=== PATIENT | male | born 1930 | race Caucasian/White ===

== ENCOUNTER 2018-08-31 08:25 | Inpatient (IN) ==
--- NOTE | 2018-08-31 08:50 | Emergency Department Note ---
Disposition Clinical Impression: Atrial fibrillation with rapid ventricular response Pneumonia Qualifiers: Pneumonia type: due to unspecified organism Laterality: bilateral Lung location: lower lobe of lung Qualified Code(s): J18.1 - Lobar pneumonia, unspecified organism Dyspnea Qualifiers: Dyspnea type: shortness of breath Qualified Code(s): R06.02 - Shortness of breath Disposition: Admitted As Inpatient Condition: Fair Referrals: Tom García DO [Primary Care Provider] - Forms: ED Satisfaction Letter Time of Disposition: 09:24 SOB HPI - General Chief Complaint: ED Chest Pain Stated Complaint: cough, congestion, and chest heaviness Time Seen by Provider: 08/31/18 08:27 Source: patient, family Mode of arrival: private vehicle Limitations: no limitations Nursing Notes Reviewed: Yes Vital Signs Reviewed: Yes - History of Present Illness Patient presents saying that he has had some shortness of breath and cough over the course of about 2-3 weeks. He states the cough is productive of yellow phlegm and tenderness be worse in the mornings. He gets a little bit better once he is been up and around for the day. He has had persistent chest tightness with this which he states is due to his breathing. He denies to me that is actually a heaviness oppressive type discomfort. He is not burning or sharp. It does not radiate to his jaw, back or arms. He states his case management social worker when his breathing gets tight her. He denies any fevers or chills. He has been having some occasional night sweats. He denies any nausea or vomiting or abdominal pain. He denies any ill exposures. He denies any change of medicines. He denies a new lower extremity swelling, immobilization or injury. He states he always has a little bit of edema. He has not had history of ongoing respiratory problems. He reports he has pulmonary function testing here ago that were "all alright". He did call to his family doctor today and was told there were "no". He has ambulated in with a cane with moderate dyspnea. Pt Subjective Complaint: shortness of breath, cough, chest pain (Tightness) Onset (ago): week(s) (3) Context: recent illness Severity: moderate, severe Consistency/Duration: gradually worsening Improves with: rest Worsens with: exertion, coughing Known history of: diabetes Associated symptoms: Reports: chest pain, cough, sputum production. Denies: pain with inspiration, fever, wheezing, orthopnea, lower extremity pain, polyuria, polydipsia, parasthesias, palpitations, hemoptysis, diaphoresis, nausea/vomiting, syncope, abdominal pain, rash, sense of impending doom Treatment prior to arrival: none Cough present: Yes Cough Description: Voluntary, Productive Cough Frequency: Intermittent Sputum production: Yes Sputum Amount: Moderate Sputum Color: Yellow - Related Data Home oxygen amount: none Home Medications Medication Instructions Recorded Confirmed Aspirin 325 mg PO DAILY 01/24/15 08/31/18 Fluticasone Propionate Nasal 2 spray NS DAILY 01/24/15 08/31/18 [Flonase] GlipiZIDE [Glucotrol] 5 mg PO DAILY 01/24/15 08/31/18 Lisinopril [Zestril] 10 mg PO DAILY 01/24/15 08/31/18 Mesalamine [Pentasa] 1,500 mg PO BID 01/24/15 08/31/18 Amlodipine Besylate 2.5 mg PO DAILY 10/24/15 08/31/18 Brimonidine 0.2% [Alphagan] 1 drop BOTH EYES BID 02/19/16 08/31/18 Cholecalciferol (Vitamin D3) 2,000 unit PO DAILY 02/19/16 08/31/18 [Vitamin D] Clobetasol Propionate 0.05% 1 appl TP DAILY 02/19/16 08/31/18 [Temovate] Cyanocobalamin (B-12) [Vitamin B12] 1,000 mcg SQ QMONTH 02/19/16 08/31/18 Famotidine [Pepcid] 40 mg PO DAILY 02/19/16 08/31/18 Gabapentin [Neurontin] 600 mg PO BID 02/19/16 08/31/18 Insulin DETEMIR [Levemir] 20 unit SQ BID 02/19/16 08/31/18 Latanoprost [Xalatan] 1 drop OP DAILY 02/19/16 08/31/18 Vit A/Vit C/Vit E/Zinc/Copper 1 each PO BID 02/19/16 08/31/18 [Icaps Areds Formula Dr Tablet] Lactobac #2-S. Therm-Bifido #1 1 each PO DAILY 01/26/17 08/31/18 [Vsl#3 Capsule] Levomefolate/B6/B12/Algal Oil 1 each PO BID 04/20/17 08/31/18 [Metanx Capsule] metFORMIN [Glucophage] 1,000 mg PO BIDWM 04/20/17 08/31/18 Thiamine Mononitrate [Vitamin B-1] 100 mg PO DAILY 06/15/17 08/31/18 Pravastatin Sodium [Pravachol] 40 mg PO DAILY 11/03/17 08/31/18 Metoprolol [Lopressor] 25 mg PO DAILY 01/02/18 08/31/18 Allergies Allergy/AdvReac Type Severity Reaction Status Date / Time No Known Allergies Allergy Verified 08/17/18 13:34 All systems ED: reviewed and negative except as stated. Past Medical History - Past Medical History Attestation: Yes The following information was validated with the patient. Source: patient, old records reviewed, obtained from family, nursing notes reviewed Medical history: Reports: cancer, diabetes, hypertension Surgical history: Reports: appendectomy, cholecystectomy, orthopedic, other (Cervical fixation) Psychiatric history: Reports: no psych history - Social History Smoking Status: Never smoker Smokeless Tobacco Status: No Alcohol use: Reports: none Drug use: Reports: none Physical Exam - General Limitations: no limitations General appearance: alert, in no apparent distress - Head Head exam: atraumatic, normocephalic, normal inspection - Eye Eye exam: Present: normal appearance, PERRL, EOMI - ENT ENT exam: normal exam, normal oropharynx, mucous membranes moist - Neck Neck exam: Present: normal inspection, full ROM, trachea midline. Absent: tenderness, meningismus - Chest Chest inspection: Present: normal inspection, symmetric chest wall rise - Respiratory Respiratory exam: Present: respiratory distress, prolonged expiratory phase. Absent: wheezes, stridor, accessory muscle use - Cardiovascular Cardiovascular exam: Present: tachycardia, irregular rhythm, normal heart sounds. Absent: JVD - Abdominal Exam Abdominal exam: Present: soft, Non-Tender, normal bowel sounds. Absent: tenderness, distention, guarding, rebound, rigidity - Extremities Exam Extremities exam: Present: normal inspection, full ROM, normal capillary refill, pedal edema (1+). Absent: tenderness, calf tenderness - Expanded Lower Extremity Exam Neurovascular/Tendon exam: Present: normal capillary refill. Absent: motor deficit, sensory deficit, tendon deficit Gait: observed and normal - Back Exam Back exam: Present: normal inspection, full ROM. Absent: tenderness, CVA tenderness (R), CVA tenderness (L) - Neurological Exam Neurological exam: Present: alert, oriented X3, normal gait (With a cane) - Psychiatric Psychiatric exam: Present: normal affect, normal mood - Skin Skin exam: Present: warm, dry, intact, normal color. Absent: diaphoresis, pallor Course Course Narrative: 09: Preliminary results been discussed with the patient. He is staying with the oxygen saturations on room air of 89-92% but does not feel dyspneic. He st ates he gets significant dyspnea on exertion. With x-ray demonstrating patchy infiltrates in the bases, he is written for a DuoNeb aerosol and Solu-Medrol and Rocephin, azithromycin and a DuoNeb aerosol. He understands we are waiting on the return of his chemistries. I have recommended inpatient observation and treatment and his ultimate destination will depend on the return of the rest of his testing. 0930: With return of all testing, care is discussed with Dr. Brennan. Patient is improving with treatment and has a heart rate of about 90. His blood pressure is 147/83 and is breathing easily saturation in the low 90s. Patient does have some elevation of his BNP but has tolerated fluids and aerosols while. Dr. Brennan will follow up closely to see if his fluids need to be decreased at any point. I do not currently see that he is having a flare of pulmonary edema/CHF. Verbal orders have been obtained for his observation. Vital Signs Temperature 96.1 F L 08/31/18 08:27 Pulse Rate 107 08/31/18 08:27 Respiratory Rate 24 08/31/18 08:27 Blood Pressure 137/111 08/31/18 08:27 O2 Sat by Pulse Oximetry 95 08/31/18 08:27 Temperature 96.1 F L 08/31/18 08:27 Pulse Rate 95 08/31/18 09:16 Respiratory Rate 22 08/31/18 09:16 Blood Pressure 123/72 08/31/18 09:16 O2 Sat by Pulse Oximetry 92 08/31/18 09:16 Oxygen Delivery Oxygen Delivery Room Air Shortness of Breath/Dyspnea - Differential Diagnosis Likely: congestive heart failure, pneumonia, asthma with exacerbation, arrhythmia - Medical Records Medical records reviewed: Yes I reviewed the patient's medical records. - Lab Data Lab results reviewed: Yes I reviewed the patient's lab results. Result diagrams: 08/31/18 08:49 08/31/18 08:49 Lab Results 08/31/18 08/31/18 08/31/18 Range/Units 08:49 08:49 08:49 WBC 5.1 (4.3-11.1) K/mcL RBC 4.33 (4.19-5.50) M/mcL Hgb 13.0 (12.9-16.9) g/dL Hct 37.6 (37.5-50.1) % MCV 86.8 (83.0-100.0) fL MCH 30.0 (28.0-33.3) pg MCHC 34.6 (31.6-35.5) g/dL RDW 15.1 H (11.5-14.5) % Plt Count 205 (140-400) K/mcL MPV 10.3 (9.4-12.4) fL Immature Gran % 0.4 (0-4) % Seg Neutrophils % 79.3 % Lymphocytes % 4.5 % Monocytes % 12.2 % Eosinophils % 3.2 % Basophils % 0.4 % Neutrophils # 4.0 (1.6-8.9) K/mcL Lymphocytes # 0.2 L (0.6-4.6) K/mcL Monocytes # 0.6 (0.0-1.3) K/mcL Eosinophils # 0.2 (0.0-0.6) K/mcL Basophils # 0.0 (0.0-0.2) K/mcL PT 13.5 H (9.4-12.1) Seconds INR 1.2 Sodium 134 L (136-145) mEq/L Potassium 3.9 (3.5-5.1) mEq/L Chloride 102 (98-107) mEq/L Carbon Dioxide 22 L (23-29) mEq/L BUN 13 (8-23) mg/dL Creatinine 0.87 (0.70-1.30) mg/dL Est GFR ( Amer) > 60 (> 60) Est GFR (Non-Af Amer) > 60 (> 60) BUN/Creatinine Ratio 15 (6-26) Glucose 146 H (70-105) mg/dL Calculated Osmolality 281 (280-300) Lactic Acid (0.5-2.2) mmol/L Calcium 8.7 (8.6-10.3) mg/dL Troponin I < 0.03 (< 0.04) ng/mL B-Natriuretic Peptide (Less than 100) pg/mL 08/31/18 08/31/18 Range/Units 08:49 08:49 WBC (4.3-11.1) K/mcL RBC (4.19-5.50) M/mcL Hgb (12.9-16.9) g/dL Hct (37.5-50.1) % MCV (83.0-100.0) fL MCH (28.0-33.3) pg MCHC (31.6-35.5) g/dL RDW (11.5-14.5) % Plt Count (140-400) K/mcL MPV (9.4-12.4) fL Immature Gran % (0-4) % Seg Neutrophils % % Lymphocytes % % Monocytes % % Eosinophils % % Basophils % % Neutrophils # (1.6-8.9) K/mcL Lymphocytes # (0.6-4.6) K/mcL Monocytes # (0.0-1.3) K/mcL Eosinophils # (0.0-0.6) K/mcL Basophils # (0.0-0.2) K/mcL PT (9.4-12.1) Seconds INR Sodium (136-145) mEq/L Potassium (3.5-5.1) mEq/L Chloride (98-107) mEq/L Carbon Dioxide (23-29) mEq/L BUN (8-23) mg/dL Creatinine (0.70-1.30) mg/dL Est GFR ( Amer) (> 60) Est GFR (Non-Af Amer) (> 60) BUN/Creatinine Ratio (6-26) Glucose (70-105) mg/dL Calculated Osmolality (280-300) Lactic Acid 0.8 (0.5-2.2) mmol/L Calcium (8.6-10.3) mg/dL Troponin I (< 0.04) ng/mL B-Natriuretic Peptide 1462 H (Less than 100) pg/mL - Radiology Data Radiology results reviewed: Yes I reviewed the patient's radiology results. Single view chest x-rays performed. This demonstrates appears to be a possible patchy infiltrate in the right base and poor visualization of the left diaphragm. Appears there is likely a small effusion in the left side. Do not see evidence for cephalization and increased interstitial markings for pulmonary edema. Cardiac silhouette is mildly enlarged. Patient does not have mass or pneumothorax. He does have previous cervical fixation visible on the film. No other acute abnormality is seen. This is on my interpretation. Impressions Chest X-Ray 08/31/18 08:32 IMPRESSION: There is a small left-sided pleural effusion and prominent bibasilar interstitial airspace disease which could represent pneumonitis or dependent edema. D/ / Dieter Adan MD / Dieter Adan MD Interpreting Provider: Dieter Adan MD - EKG Data EKG attestation: Yes I reviewed and interpreted this EKG. EKG shows normal: Reports: intervals, QRS complexes, ST-T waves Rate: Reports: tachycardia (128) Rhythm: Reports: A.Fib [place]/QRS: Reports: left axis deviation Interpretation: Reports: no acute changes, nonspecific ST-T wave changes, other (Atrial fibrillation with rapid ventricular response.)
[2018-08-31 08:59] LABS: Basophils % 0.4 %; Eosinophils # 0.2 K/mcL (0.0-0.6); Eosinophils % 3.2 %; Hematocrit 37.6 % (37.5-50.1); Immature Granulocytes % 0.4 % (0-4); Lymphocytes # 0.2 K/mcL (0.6-4.6); Lymphocytes % 4.5 %; Mean Corpuscular HGB Conc 34.6 g/dL (31.6-35.5); Mean Corpuscular Volume 86.8 fL (83.0-100.0); Mean Platelet Volume 10.3 fL (9.4-12.4); Monocytes # 0.6 K/mcL (0.0-1.3); Monocytes % 12.2 %; Platelet Count 205 K/mcL (140-400); Red Blood Count 4.33 M/mcL (4.19-5.50); Red Cell Distribution Width 15.1 % (11.5-14.5); Segmented Neutrophils % 79.3 %; White Blood Count 5.1 K/mcL (4.3-11.1)
[2018-08-31] MEDS ORDERED: Ipratropium/Albuterol Neb 3 ML IH ONE (09:02)
[2018-08-31] MEDS ORDERED: 0.9 % Sodium Chloride 500 ML IVC ONE (09:02)
[2018-08-31] MEDS ORDERED: Azithromycin 500 MG in D5% in Water 250 ML IVPB ONE (09:02)
[2018-08-31] MEDS ORDERED: cefTRIAXone 2,000 MG in 0.9 % Sodium Chloride Mini Bag 100 ML IVPB ONE (09:02)
[2018-08-31] MEDS ORDERED: methylPREDNISolone 125 MG/2 ML VIAL IVP ONE (09:02)
[2018-08-31 09:07] LABS: INR 1.2; Prothrombin Time 13.5 Seconds (9.4-12.1)
[2018-08-31] MEDS ORDERED: 0.9 % Sodium Chloride 1,000 ML IVC SCH ×2 (09:15→10:43)
[2018-08-31 09:19] LABS: BUN/Creatinine Ratio 15 (6-26); Blood Urea Nitrogen 13 mg/dL (8-23); Calcium 8.7 mg/dL (8.6-10.3); Carbon Dioxide 22 mEq/L (23-29); Chloride 102 mEq/L (98-107); Glucose 146 mg/dL (70-105); Osmolality,Calculated 281 (280-300); Potassium 3.9 mEq/L (3.5-5.1); Sodium 134 mEq/L (136-145); Troponin I < 0.03 ng/mL (< 0.04); eGFR For African Americans > 60 (> 60); eGFR For Non-African Americans > 60 (> 60)
[2018-08-31] MEDS ORDERED: Naloxone 0.4 MG/ML INJ IVP PRN (10:43)
[2018-08-31] MEDS ORDERED: Ondansetron ODT 4 MG TAB.RAPDIS SL PRN (10:43)
[2018-08-31] MEDS ORDERED: Albuterol 2.5 MG/3 ML NEBULIZER IH PRN (10:43)
[2018-08-31] MEDS ORDERED: MOM Conc 10 ML UD.LIQ PO PRN (10:43)
[2018-08-31] MEDS ORDERED: Dextrose Gel 15 GM/37.5 ML TUBE PO PRN ×4 (10:43→19:56)
[2018-08-31] MEDS ORDERED: D5% in Water 1,000 ML IVC PRN ×2 (10:43→19:56)
[2018-08-31] MEDS ORDERED: Mag Hydrox/Al Hydrox/Simeth 30 ML UDC PO PRN (10:43)
[2018-08-31] MEDS ORDERED: *HR* Dextrose 50 % in Water (Syg) 50 ML SYRINGE IVP PRN ×2 (10:43→19:56)
[2018-08-31] MEDS: Ipratropium/Albuterol Neb 3 ML IH SCH ×2 (10:43→15:25)
[2018-08-31] MEDS ORDERED: Cyanocobalamin (B-12) 1,000 MCG/ML VIAL SQ SCH (10:43)
--- NOTE | 2018-08-31 12:30 | Electrocardiograph Report ---
[place] [id number] Test Date: 2018-08-31 Pat Name: Neptali Gómez Department: EDP-16 Room: [facility] Gender: M Delivery Nurse: : 1930 Requested By: Soto Ash Order Number: [id number] Reading MD: Bishnu Flores Measurements Intervals [place] Rate: 128 P: AL: QRS: -52 QRSD: 95 T: 105 QT: 360 QTc: 526 Interpretive Statements Atrial fibrillation LAD, consider LAFB Nonspecific repol abnormality, lateral leads Prolonged QT interval Electronically Signed On 08-31-2018 12:28:55 EDT by Bishnu Flores
[2018-08-31] MEDS: Insulin LISPRO 300 UNITS/3 ML VIAL SQ SCH ×3 (13:11→21:35)
--- NOTE | 2018-08-31 16:37 | Internal Med History&Physical ---
Date of Encounter: 08/31/18 Time of Encounter: 15:35 Assessment and Plan (1) Pneumonia Current visit: Yes Status: Acute He was given Rocephin and Zithromax in emergency room with a dose of Solu- Medrol. Antibiotics and prednisone will be continued. Further workup will be done as needed. Qualifiers: Pneumonia type: due to unspecified organism Laterality: bilateral Lung location: lower lobe of lung Qualified Code(s): J18.1 - Lobar pneumonia, unspecified organism (2) Elevated brain natriuretic peptide (BNP) level Current visit: Yes Status: Acute Echocardiogram will be done to further evaluate. (3) DM type 2 (diabetes mellitus, type 2) Current visit: Yes Status: Chronic Continue Levemir and Glucophage. Accu-Cheks with SSI will be done. Qualifiers: Diabetes mellitus custodial insulin use: with custodial use Diabetes mellitus complication status: without complication Qualified Code(s): E11.9 - Type 2 diabetes mellitus without complications; Z79.4 - shelter (current) use of insulin (4) Diabetic peripheral neuropathy Current visit: Yes Status: Acute Continue Neurontin. (5) Atrial fibrillation with rapid ventricular response Current visit: Yes Status: Acute Echocardiogram has been ordered. He will be given a dose of Lanoxin. Lopressor will be increased to twice a day. (6) Hypertension Current visit: Yes Status: Chronic Increase Lopressor to 25 mg twice a day. Continue lisinopril. Hold amlodipine. Qualifiers: Hypertension type: essential hypertension Qualified Code(s): I10 - Essential (primary) hypertension Internal Medicine - H&P: HPI Chief complaint: Cough and dyspnea Admitted From: Emergency Dept Plans for Post Hospital Care: Home History of present illness: Mr. Gómez is a 88 year old male who came to emergency room complaining of chest discomfort described as a "pressure" and cough/cold symptoms onset 3-4 weeks previously. He reports the cough was productive of white and minimal amount of yellow sputum. He denies fevers chills vomiting or diarrhea. When he did not improve he came to emergency room and was evaluated and was found to have atrial fibrillation with RVR. Chest x-ray showed possible bibasilar pneumonia. He was admitted to [facility] floor for ongoing care needs. He reports history of chronic atrial fibrillation and hypertension. He reports EST approximately 1998 showed no evidence of ischemia. He denies history of heart failure [place] DVT or pulmonary embolus. Respiratory history is significant for being a lifelong nonsmoker. Pulmonary function testing 04/22/2017 showed normal spirometry. DLCO (corrected)was 73% predicted. Past Med Surg Social Fam HX - Past Medical History Medical history: cancer, diabetes, hypertension, other Additional medical history: colon cancer Psychiatric history: no psych history - Past Surgical History Surgical History: appendectomy, cholecystectomy, orthopedic, other Additional surgical history: bowel resection. neck sx - Social History Smoking Status: Never smoker Smokeless Tobacco Status: No Alcohol use: none Drug use: none Internal Medicine - H&P: Meds Aspirin 325 mg PO DAILY 01/24/15 [History] Fluticasone Propionate Nasal [Flonase] 2 spray NS DAILY 01/24/15 [History] GlipiZIDE [Glucotrol] 5 mg PO DAILY 01/24/15 [History] Lisinopril [Zestril] 10 mg PO DAILY 01/24/15 [History] Mesalamine [Pentasa] 1,500 mg PO BID 01/24/15 [History] Amlodipine Besylate 2.5 mg PO DAILY 10/24/15 [History] Brimonidine 0.2% [Alphagan] 1 drop BOTH EYES BID 02/19/16 [History] Cholecalciferol (Vitamin D3) [Vitamin D] 2,000 unit PO DAILY 02/19/16 [History] Clobetasol Propionate 0.05% [Temovate] 1 appl TP DAILY 02/19/16 [History] Cyanocobalamin (B-12) [Vitamin B12] 1,000 mcg SQ QMONTH 02/19/16 [History] Famotidine [Pepcid] 40 mg PO DAILY 02/19/16 [History] Gabapentin [Neurontin] 600 mg PO BID 02/19/16 [History] Insulin DETEMIR [Levemir] 20 unit SQ BID 02/19/16 [History] Latanoprost [Xalatan] 1 drop OP DAILY 02/19/16 [History] Vit A/Vit C/Vit E/Zinc/Copper [Icaps Areds Formula Dr Tablet] 1 each PO BID 1 04/20/15 [History] Lactobac #2-S. Therm-Bifido #1 [Vsl#3 Capsule] 1 each PO DAILY 01/26/17 [History] Levomefolate/B6/B12/Algal Oil [Metanx Capsule] 1 each PO BID 04/20/17 [History] metFORMIN [Glucophage] 1,000 mg PO BIDWM 04/20/17 [History] Thiamine Mononitrate [Vitamin B-1] 100 mg PO DAILY 06/15/17 [History] Pravastatin Sodium [Pravachol] 40 mg PO DAILY 11/03/17 [History] Metoprolol [Lopressor] 25 mg PO DAILY 01/02/18 [History] Allergy/AdvReac Type Severity Reaction Status Date / Time No Known Allergies Allergy Verified 08/17/18 13:34 All Systems PM: A 10-system review of systems was performed and is negative for pertinent findi ngs except as documented above in the HPI. Review of systems: Gen.: He states his weight has been stable for several months Cardiovascular: As per history of present illness Respiratory: As per history of present illness GI: He reports a history of long-standing GI blood loss. He states multiple colonoscopies have been done with a diagnosis of colitis. He was started on mesalamine. He follows regularly with a powertrain control systems engineer at [facility]. He has had cholecystectomy. He denies disorders of his liver or exocrine pancreas : Reports history of acute kidney injury that resolved but denies chronic kidney disease or disorders of his bladder or prostate Neurologic: He has diabetic peripheral neuropathy. He denies large distribution strokes or seizures. Endocrine: He was diagnosed with DM 2 approximately 1995. He has hyperlipidemia but denies thyroid disease Hematology/oncology: He reports iron deficiency anemia from slow ongoing GI blood loss. He reports multiple iron infusions have been given. Reports history of colon cancer March 1995 that was treated with segmental resection which was curative. He is presumed cancer free. He denies other blood d isorders or recent anemia. Psychiatric: He denies anxiety depression or other mental health issues [place] skeletal: He reports cervical spine HNP surgery approximately 2014. He has DJD and remote history of gout. - Constitutional Vitals: Temp Pulse Resp BP Pulse Ox 96.1 F L 93 18 147/83 99 08/31/18 08:27 08/31/18 09:50 08/31/18 15:26 08/31/18 09:50 08/31/18 15:26 Exam: Gen.: He is a well-developed well-nourished male resting comfortably in bed who appears in no severe distress HEENT: Head is atraumatic and normocephalic. Eyes: EOMI. There is no scleral icterus. Mouth: Mucosa is moist. Neck: Supple and nontender. There is no thyromegaly or adenopathy noted. Heart: Irregularly irregular with rate approximately 120/m. No murmurs or gallops are heard. Lungs: No wheezes or crackles are heard. Abdomen: Soft and nontender. No masses or guarding are noted. Extremities: He has trace edema of the lower legs bilaterally. Dorsalis pedis and posterior tibial pulses are trace to 1+ palpable bilaterally. Neurologic: Mental status: He is talkative and a good historian. Cranial nerves: Smile is symmetric. Forehead wrinkles bilaterally. Tongue protrudes midline. EOMI. Motor: There is no pronator drift. Cerebellar: Fair to nose is intact bilaterally. Skin: Warm and dry Internal Med - H&P Results - Labs CBC & Chem 7: 08/31/18 08:49 08/31/18 08:49 Labs: Short CBC 08/31/18 Range/Units 08:49 WBC 5.1 (4.3-11.1) K/mcL Hgb 13.0 (12.9-16.9) g/dL Hct 37.6 (37.5-50.1) % Plt Count 205 (140-400) K/mcL Neutrophils # 4.0 (1.6-8.9) K/mcL BMP 08/31/18 08:49 Sodium 134 L Potassium 3.9 Chloride 102 Carbon Dioxide 22 L BUN 13 Creatinine 0.87 Glucose 146 H Calcium 8.7 Cardiac Enzymes 08/31/18 Range/Units 08:49 Troponin I < 0.03 (< 0.04) ng/mL - Impressions ITS Impressions Chest X-Ray 08/31/18 08:32 IMPRESSION: There is a small left-sided pleural effusion and prominent bibasilar interstitial airspace disease which could represent pneumonitis or dependent edema. D/ / Dieter Adan MD / Dieter Adan MD Interpreting Provider: Dieter Adan MD
[2018-08-31] MEDS: predniSONE 20 MG TABLET PO SCH (17:12)
[2018-08-31] MEDS: *HR* Digoxin 0.25 MG TABLET PO SCH (17:12)
[2018-08-31] MEDS: *HR* Metformin 500 MG TABLET PO SCH (17:12)
[2018-08-31] MEDS: Gabapentin 300 MG CAPSULE PO SCH (21:15)
[2018-08-31] MEDS: Insulin DETEMIR 100 UNIT/ML X5UNITS SQ SCH (21:35)
[2018-08-31] MEDS: ALGAL OIL PO SCH (21:36)
[2018-08-31] MEDS: VIT E PO SCH (21:36)
[2018-08-31] MEDS: VIT A PO SCH (21:36)
[2018-08-31] MEDS: B12 PO SCH (21:36)
[2018-08-31] MEDS: COPPER PO SCH (21:36)
[2018-08-31] MEDS: VIT C PO SCH (21:36)
[2018-08-31] MEDS: LEVOMEFOLATE PO SCH (21:36)
[2018-08-31] MEDS: B6 PO SCH (21:36)
[2018-08-31] MEDS: ZINC PO SCH (21:36)
[2018-08-31] MEDS: Mesalamine 250 MG CAPSULE.ER PO SCH (23:48)
[2018-09-01 06:43] LABS: Phosphorous 2.7 mg/dL (2.7-4.5)
[2018-09-01 07:42] LABS: Thyroid Stimulating Hormone 0.502 mcIU/mL (0.340-5.600)
[2018-09-01] MEDS: Gabapentin 300 MG CAPSULE PO SCH ×2 (08:08→20:20)
[2018-09-01] MEDS: Famotidine 20 MG TABLET PO SCH (08:08)
[2018-09-01] MEDS: predniSONE 20 MG TABLET PO SCH (08:08)
[2018-09-01] MEDS: Cholecalciferol (D-3) 1,000 UNIT (25MCG) TABLET PO SCH (08:09)
[2018-09-01] MEDS: Lactobacillus 1 EACH CAP.SPRINK PO SCH (08:09)
[2018-09-01] MEDS: *HR* Digoxin 0.25 MG TABLET PO SCH (08:09)
[2018-09-01] MEDS: GlipiZIDE 5 MG TABLET PO SCH (08:09)
[2018-09-01] MEDS: LEVOMEFOLATE PO SCH ×2 (08:10→20:21)
[2018-09-01] MEDS: ALGAL OIL PO SCH ×2 (08:10→20:21)
[2018-09-01] MEDS: B6 PO SCH ×2 (08:10→20:21)
[2018-09-01] MEDS: VIT A PO SCH ×2 (08:10→20:21)
[2018-09-01] MEDS: B12 PO SCH ×2 (08:10→20:21)
[2018-09-01] MEDS: VIT C PO SCH ×2 (08:10→20:21)
[2018-09-01] MEDS: COPPER PO SCH ×2 (08:10→20:21)
[2018-09-01] MEDS: VIT E PO SCH ×2 (08:10→20:21)
[2018-09-01] MEDS: ZINC PO SCH ×2 (08:10→20:21)
[2018-09-01] MEDS: Mesalamine 250 MG CAPSULE.ER PO SCH ×2 (08:11→20:21)
[2018-09-01] MEDS: *HR* Metformin 500 MG TABLET PO SCH ×2 (08:11→16:27)
[2018-09-01] MEDS: Latanoprost 2.5 ML BOTTLE BOTH EYES SCH ×2 (08:21→21:42)
[2018-09-01] MEDS: Clobetasol Propionate 0.05% 15 GM Cream Tube TP SCH (08:22)
[2018-09-01] MEDS: Insulin LISPRO 300 UNITS/3 ML VIAL SQ SCH ×4 (08:34→20:20)
[2018-09-01] MEDS ORDERED: Azithromycin 500 MG in D5% in Water 250 ML IVPB SCH (09:00)
[2018-09-01] MEDS ORDERED: amLODIPine 5 MG TABLET PO SCH (09:00)
[2018-09-01] MEDS ORDERED: Fluticasone Propionate Nasal 50 MCG/SPRAY BOTTLE NS SCH ×2 (09:00→21:00)
[2018-09-01] MEDS ORDERED: Aspirin 325 MG TABLET PO SCH (09:00)
[2018-09-01] MEDS ORDERED: Thiamine (B-1) 100 MG TABLET PO SCH (09:00)
[2018-09-01] MEDS: Insulin DETEMIR 100 UNIT/ML X5UNITS SQ SCH (09:30)
[2018-09-01] MEDS: cefTRIAXone 2,000 MG in 0.9 % Sodium Chloride Mini Bag 100 ML IVPB SCH (09:39)
[2018-09-01] MEDS: Azithromycin 500 MG in D5% in Water 250 ML IVPB SCH (11:24)
--- NOTE | 2018-09-01 11:30 | Internal Med Progress Note ---
Date of Encounter: 09/01/18 Time of Encounter: 11:15 - Assessment and plan (1) Pneumonia Current Visit: Yes Status: Acute Assessment and plan: September 01. Clinical findings minimal. Discontinue prednisone. Recheck labs and chest x-ray in a.m. Qualifiers: Pneumonia type: due to unspecified organism Laterality: bilateral Lung location: lower lobe of lung Qualified Code(s): J18.1 - Lobar pneumonia, unspecified organism (2) Elevated brain natriuretic peptide (BNP) level Current Visit: Yes Status: Acute Assessment and plan: September 01. Echocardiogram showed LVEF of 20-25% with indeterminate diastolic function. There was moderate RV hypokinesis, moderate mitral regurgitation, [id number] tricuspid regurgitation, and mild pulmonic regurgitation. There is a small pericardial effusion without temp but not in a moderate to large pleural effusion. Estimated RVSP was 54 mmHg. The interventricular septum and posterior wall thickness measurements were 1.60 and 1.10 cm respectively. There was LAE at 4.30 cm. I reviewed these findings in detail with him. Will continue lisinopril, Lanoxin, and metoprolol. Add Imdur and Bumex and recheck labs in a.m. (3) DM type 2 (diabetes mellitus, type 2) Current Visit: Yes Status: Chronic Assessment and plan: September 01. Continue Levemir and Glucophage with Accu-Cheks and SSI. Discontinue prednisone. 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 Continue Neurontin. (5) Atrial fibrillation with rapid ventricular response Current Visit: Yes Status: Acute Assessment and plan: Rate controlled. He will be started on Xarelto for CVA prophylaxis. Continue metoprolol and Lanoxin for rate control. (6) Hypertension Current Visit: Yes Status: Chronic Assessment and plan: September 01. Continue Lopressor and lisinopril. Qualifiers: Hypertension type: essential hypertension Qualified Code(s): I10 - Essential (primary) hypertension - Subjective Interval history: September 01. He has no new complaints. - Constitutional Vitals: Temp Pulse Resp BP Pulse Ox 97.5 F L 67 17 133/77 95 09/01/18 10:50 09/01/18 10:50 09/01/18 10:50 09/01/18 10:50 09/01/18 10:50 Exam: He is resting comfortably in bed and appears in no acute distress. Heart is irregularly irregular with rate 68/m. Lungs show no wheezes or crackles. There is dullness in the right base to percussion. Extremities show trace edema bilaterally. I reviewed his medications, lab results, and echocardiogram report. Internal Medicine: Result - Labs CBC & Chem 7: 08/31/18 08:49 08/31/18 08:49 - ABG Interpretation ABG results: PT/INR, D-dimer PT 13.5 Seconds (9.4-12.1) H 08/31/18 08:49 - Impressions Impressions Echocardiogram 08/31/18 16:32 Impressions: LVEF 20-25%. Severe global left ventricular systolic dysfunction. Mild concentric left ventricular hypertrophy. Indeterminate diastolic function. Moderate RV hypokinesis. Mildly dilated left atrium. Moderate mitral regurgitation. Mild-moderate tricuspid regurgitation. Mild pulmonic regurgitation. Moderate pulmonary hypertension. Uvaldo pericardial effusion without echocardiographic evidence of tamponade. Moderate to large pleural effusion. Ordering physician notified via [employer]. Left Ventricular Wall Motion: Rest Echo Findings The apex, apical inferior, mid inferior, basal inferior, apical anterior, mid anterior, basal anterior, apical septal, mid inferior septal, basal inferior septal, apical lateral, mid anterior lateral, basal anterior lateral, mid anterior septal, mid inferior lateral, basal anterior septal and basal inferior lateral sharma were hypokinetic. Findings: Study Quality * Technically sub-optimal due to clinical status. ECG Findings * Atrial fibrillation. Left Ventricle * LVEF 20-25%. * Normal LV chamber size. * Mild concentric left ventricular hypertrophy. * Severe global left ventricular systolic dysfunction. * Indeterminate diastolic function. * Definity echo contrast was not used. Right Ventricle * Normal right ventricular structure with moderate hypokinesis. Left Atrium * Mildly dilated left atrium. Right Atrium * Normal right atrial size. Interatrial Septum * Interatrial septum not well evaluated. * No evidence of PFO by color Doppler. Aortic Valve * Trileaflet aortic valve. * Mildly calcified aortic valve leaflets. * No aortic stenosis. * No aortic regurgitation. Mitral Valve * Normal mitral valve structure. * No mitral stenosis. * Moderate mitral regurgitation. Tricuspid Valve * Normal tricuspid valve structure. * No tricuspid stenosis. * Mild-moderate tricuspid regurgitation. * Estimated RVSP is 54 mmHg. * Estimated RA pressure is 8 mmHg. * Moderate pulmonary hypertension. Pulmonic Valve * Pulmonic valve is not well visualized. * No pulmonic stenosis. * Mild pulmonic regurgitation. Aorta * Normally sized aortic root. Pericardium * There is a small pericardial effusion present. * There is no echocardiographic evidence of tamponade. IVC * The IVC is not dilated. * < 50% respiratory change. Pleural Effusion * Moderate to large pleural effusion. Consult Discharge Plan - Plan Referrals: Tom García DO [Primary Care Provider] - 1 week
[2018-09-01] MEDS ORDERED: *HR* Dextrose 50 % in Water (Vial) 50 ML VIAL IVP PRN (13:00)
[2018-09-01] MEDS: Bumetanide 1 MG TABLET PO SCH (13:01)
[2018-09-01] MEDS: Isosorbide MONOnitrate (24 HR) 30 MG TAB.ER.24H PO SCH (13:01)
[2018-09-01] MEDS ORDERED: *HR* Rivaroxaban 15 MG TABLET PO SCH (17:00)
[2018-09-01] MEDS ORDERED: Latanoprost 2.5 ML BOTTLE BOTH EYES SCH (21:00)
[2018-09-01] MEDS ORDERED: Insulin DETEMIR 100 UNIT/ML X5UNITS SQ SCH (21:00)
[2018-09-02 05:01] LABS: Basophils % 0.3 %; Eosinophils # 0.1 K/mcL (0.0-0.6); Eosinophils % 1.5 %; Hematocrit 35.4 % (37.5-50.1); Hemoglobin 12.3 g/dL (12.9-16.9); Immature Granulocytes % 0.3 % (0-4); Lymphocytes # 0.4 K/mcL (0.6-4.6); Lymphocytes % 4.6 %; Mean Corpuscular HGB Conc 34.7 g/dL (31.6-35.5); Mean Corpuscular Hemoglobin 30.2 pg (28.0-33.3); Mean Platelet Volume 10.8 fL (9.4-12.4); Monocytes # 0.6 K/mcL (0.0-1.3); Monocytes % 7.8 %; Neutrophils # 6.8 K/mcL (1.6-8.9); Platelet Count 224 K/mcL (140-400); Red Blood Count 4.07 M/mcL (4.19-5.50); Red Cell Distribution Width 15.3 % (11.5-14.5); Segmented Neutrophils % 85.5 %
[2018-09-02 05:21] LABS: BUN/Creatinine Ratio 25 (6-26); Blood Urea Nitrogen 26 mg/dL (8-23); Calcium 9.1 mg/dL (8.6-10.3); Carbon Dioxide 24 mEq/L (23-29); Chloride 103 mEq/L (98-107); Glucose 104 mg/dL (70-105); Magnesium 1.6 mg/dL (1.6-2.6); Osmolality,Calculated 291 (280-300); Potassium 3.6 mEq/L (3.5-5.1); Sodium 138 mEq/L (136-145); eGFR For African Americans > 60 (> 60); eGFR For Non-African Americans > 60 (> 60)
[2018-09-02] MEDS: Insulin LISPRO 300 UNITS/3 ML VIAL SQ SCH ×2 (07:56→11:12)
[2018-09-02] MEDS ORDERED: Insulin DETEMIR 100 UNIT/ML X5UNITS SQ SCH (09:00)
[2018-09-02] MEDS ORDERED: Insulin DETEMIR 100 UNIT/ML X5UNITS SQ ONE (09:09)
[2018-09-02] MEDS: GlipiZIDE 5 MG TABLET PO SCH (09:16)
[2018-09-02] MEDS: Lactobacillus 1 EACH CAP.SPRINK PO SCH (09:17)
[2018-09-02] MEDS: Famotidine 20 MG TABLET PO SCH (09:17)
[2018-09-02] MEDS: Gabapentin 300 MG CAPSULE PO SCH (09:17)
[2018-09-02] MEDS: Cholecalciferol (D-3) 1,000 UNIT (25MCG) TABLET PO SCH (09:18)
[2018-09-02] MEDS: Isosorbide MONOnitrate (24 HR) 30 MG TAB.ER.24H PO SCH (09:18)
[2018-09-02] MEDS: *HR* Digoxin 0.25 MG TABLET PO SCH (09:18)
[2018-09-02] MEDS: Bumetanide 1 MG TABLET PO SCH (09:19)
[2018-09-02] MEDS: *HR* Metformin 500 MG TABLET PO SCH (09:19)
[2018-09-02] MEDS: Mesalamine 250 MG CAPSULE.ER PO SCH (09:21)
[2018-09-02] MEDS: ZINC PO SCH (09:21)
[2018-09-02] MEDS: B6 PO SCH (09:21)
[2018-09-02] MEDS: VIT E PO SCH (09:21)
[2018-09-02] MEDS: VIT C PO SCH (09:21)
[2018-09-02] MEDS: ALGAL OIL PO SCH (09:21)
[2018-09-02] MEDS: LEVOMEFOLATE PO SCH (09:21)
[2018-09-02] MEDS: COPPER PO SCH (09:21)
[2018-09-02] MEDS: B12 PO SCH (09:21)
[2018-09-02] MEDS: VIT A PO SCH (09:21)
[2018-09-02] MEDS: Clobetasol Propionate 0.05% 15 GM Cream Tube TP SCH (09:24)
[2018-09-02] MEDS: cefTRIAXone 2,000 MG in 0.9 % Sodium Chloride Mini Bag 100 ML IVPB SCH (10:34)
[2018-09-02] MEDS: Azithromycin 500 MG in D5% in Water 250 ML IVPB SCH (11:20)
[2018-09-02 12:57] VITALS: BP 136/79
--- NOTE | 2018-09-02 15:00 | Discharge Summary ---
Orders not resulted at time of discharge: Pending orders 08/31/18 09:20 Culture,Blood [] Stat Date of Encounter: 09/02/18 Time of Encounter: 14:30 - Discharge Diagnosis (1) Pneumonia Priority: Primary Status: Acute Qualifiers: Pneumonia type: due to unspecified organism Laterality: bilateral Lung location: lower lobe of lung Qualified Code(s): J18.1 - Lobar pneumonia, unspecified organism (2) CHF (congestive heart failure) Priority: Secondary Status: Acute Qualifiers: Heart failure type: systolic Heart failure chronicity: acute on chronic Qualified Code(s): I50.23 - Acute on chronic systolic (congestive) heart failure (3) DM type 2 (diabetes mellitus, type 2) Priority: Secondary Status: Chronic Qualifiers: 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 Gómez is a 88 year old male who came to emergency room complaining of chest discomfort described as a "pressure" and cough/cold symptoms onset 3-4 weeks previously. He reports the cough was productive of white and minimal amount of yellow sputum. He denies fevers chills vomiting or diarrhea. When he did not improve he came to emergency room and was evaluated and was found to have atrial fibrillation with RVR. Chest x-ray showed possible bibasilar pneumonia. He was admitted to [facility] floor for ongoing care needs. Initial orders were written by the emergency room physician. I saw him on August 31 and performed a history and physical. He was started on IV Rocephin and Zithromax in emergency room. Solu-Medrol was given in ER and oral prednisone started for maintenance. He had no significant wheezing so prednisone was discontinued after the first hospital day. Follow-up chest x-ray September 02 showed no significant change in bibasilar findings. He remained afebrile. He will continue with antibiotic and probiotic for 5 additional days at discharge. Echocardiogram was done to further evaluate elevated BN peptide and showed LVEF of 20-25% with indeterminate diastolic function. There was moderate RV hypokinesis, moderate mitral regurgitation, [id number] tricuspid regurgitation, and mild pulmonic regurgitation. There was a small pericardial effusion without tamponade and a moderate to large pleural effusion. Estimated RVSP was 54 mmHg. The interventricular septum and posterior wall thickness measurements were 1.60 and 1.10 cm respectively. There was LAE at 4.30 cm. He was started on Lanoxin, Imdur, and Bumex. Lisinopril and metoprolol were continued at higher doses. He had good clinical improvement with BN peptide decreasing from 2595 on September 01 to 1258 on September 02. He was started on Xarelto for CVA prophylaxis from [facility]. Rate control was achieved with higher dose metoprolol and initiation of Lanoxin. He will continue this regimen at discharge. On September 02 I felt he was stable for discharge home. He will follow with his PCP Dr. García within 1 week. He will follow with his envelope cutter Dr. Flores at [facility] in 1-2 weeks. - Time Spent with Patient Total time spent providing and/or coordinating discharge services: - Discharge Medications Prescriptions: New Bumetanide [Bumex] 1 mg PO DAILY #30 tablet Cefuroxime PO [Ceftin] 500 mg PO Q12HR #10 tablet Lactobacillus [Culturelle] 1 each PO BID #10 cap.sprink Isosorbide MONOnitrate (24 HR) [Imdur] 60 mg PO DAILY #30 tab.er.24h Digoxin [Lanoxin] 0.125 mg PO DAILY #30 tablet Potassium Chloride 10 meq PO DAILY #30 tab.er.prt Metoprolol XL (24 HR) Succ [Toprol XL] 50 mg PO DAILY #30 tab.er.24h Rivaroxaban [Xarelto] 15 mg PO 1700 #30 tablet Lisinopril [Zestril] 10 mg PO DAILY #30 tablet Azithromycin [Zithromax] 250 mg PO DAILY #5 tablet Continued Fluticasone Propionate Nasal [Flonase] 2 spray NS DAILY Mesalamine [Pentasa] 1,500 mg PO BID GlipiZIDE [Glucotrol] 5 mg PO DAILY Insulin DETEMIR [Levemir] 20 unit SQ BID Gabapentin [Neurontin] 600 mg PO BID Brimonidine 0.2% [Alphagan] 1 drop BOTH EYES BID Vit A/Vit C/Vit E/Zinc/Copper [Icaps Areds Formula Dr Tablet] 1 each PO BID Latanoprost [Xalatan] 1 drop OP DAILY Famotidine [Pepcid] 40 mg PO DAILY Cyanocobalamin (B-12) [Vitamin B12] 1,000 mcg SQ QMONTH Clobetasol Propionate 0.05% [Temovate] 1 appl TP DAILY Cholecalciferol (Vitamin D3) [Vitamin D3] 2,000 unit PO DAILY Lactobac #2-S. Therm-Bifido #1 [Vsl#3 Capsule] 1 each PO DAILY metFORMIN [Glucophage] 1,000 mg PO BIDWM Levomefolate/B6/B12/Algal Oil [Metanx Capsule] 1 each PO BID Thiamine Mononitrate [Vitamin B-1] 100 mg PO DAILY Pravastatin Sodium [Pravachol] 40 mg PO DAILY Discontinued Lisinopril [Zestril] 10 mg PO DAILY Aspirin 325 mg PO DAILY Amlodipine Besylate 2.5 mg PO DAILY Metoprolol [Lopressor] 25 mg PO DAILY Home Medications: Fluticasone Propionate Nasal [Flonase] 2 spray NS DAILY 01/24/15 [History] GlipiZIDE [Glucotrol] 5 mg PO DAILY 01/24/15 [History] Mesalamine [Pentasa] 1,500 mg PO BID 01/24/15 [History] Brimonidine 0.2% [Alphagan] 1 drop BOTH EYES BID 02/19/16 [History] Cholecalciferol (Vitamin D3) [Vitamin D3] 2,000 unit PO DAILY 02/19/16 [History] Clobetasol Propionate 0.05% [Temovate] 1 appl TP DAILY 02/19/16 [History] Cyanocobalamin (B-12) [Vitamin B12] 1,000 mcg SQ QMONTH 02/19/16 [History] Famotidine [Pepcid] 40 mg PO DAILY 02/19/16 [History] Gabapentin [Neurontin] 600 mg PO BID 02/19/16 [History] Insulin DETEMIR [Levemir] 20 unit SQ BID 02/19/16 [History] Latanoprost [Xalatan] 1 drop OP DAILY 02/19/16 [History] Vit A/Vit C/Vit E/Zinc/Copper [Icaps Areds Formula Dr Tablet] 1 each PO BID 02/19/16 [History] Lactobac #2-S. Therm-Bifido #1 [Vsl#3 Capsule] 1 each PO DAILY 01/26/17 [History] Levomefolate/B6/B12/Algal Oil [Metanx Capsule] 1 each PO BID 04/20/17 [History] metFORMIN [Glucophage] 1,000 mg PO BIDWM 04/20/17 [History] Thiamine Mononitrate [Vitamin B-1] 100 mg PO DAILY 06/15/17 [History] Pravastatin Sodium [Pravachol] 40 mg PO DAILY 11/03/17 [History] Azithromycin [Zithromax] 250 mg PO DAILY #5 tablet 09/02/18 [Rx] Bumetanide [Bumex] 1 mg PO DAILY #30 tablet 09/02/18 [Rx] Cefuroxime PO [Ceftin] 500 mg PO Q12HR #10 tablet 09/02/18 [Rx] Digoxin [Lanoxin] 0.125 mg PO DAILY #30 tablet 09/02/18 [Rx] Isosorbide MONOnitrate (24 HR) [Imdur] 60 mg PO DAILY #30 tab.er.24h 09/02/18 [Rx] Lactobacillus [Culturelle] 1 each PO BID #10 cap.sprink 09/02/18 [Rx] Lisinopril [Zestril] 10 mg PO DAILY #30 tablet 09/02/18 [Rx] Metoprolol XL (24 HR) Succ [Toprol XL] 50 mg PO DAILY #30 tab.er.24h 09/02/18 [Rx] Potassium Chloride 10 meq PO DAILY #30 tab.er.prt 09/02/18 [Rx] Rivaroxaban [Xarelto] 15 mg PO 1700 #30 tablet 09/02/18 [Rx] Allergies/Adverse Reactions: Allergy/AdvReac Type Severity Reaction Status Date / Time No Known Allergies Allergy Verified 08/17/18 13:34 Date of admission: 09/01/18 11:47 Primary care physician: Tom García DO Consults: 08/31/18 12:15 Consult to Nutrition [CONS] Routine Comment: Consulting Provider: NUTRITION Reason for Dietary Consult: Other Other:: Patient has had a decreased appetite x4 weeks - Constitutional Vitals: Temp Pulse Resp BP Pulse Ox 96.3 F L 62 16 136/79 96 09/02/18 12:55 09/02/18 12:55 09/02/18 12:55 09/02/18 12:55 09/02/18 12:55 - Patient Status Disposition: Home, Self-Care Condition: Fair - Discharge Instructions Follow Up With: Tom García DO [Primary Care Provider] - 1 week - Diet and Activity Activity: resume usual activities as tolerated Diet: low fat, low cholesterol, low salt diet
== END 2018-09-02 15:35 | disposition home or self-care (01) | DRG 193 ==
LOC: EMEROOPIK 08:25 → INPPIK 08:25
PROVIDERS: ADMIT Internal Medicine; ATTEND Internal Medicine

== ENCOUNTER 2018-09-25 14:37 | Observation (INO) ==
--- NOTE | 2018-09-25 14:50 | Emergency Department Note ---
Disposition Clinical Impression: Syncope due to orthostatic hypotension Disposition: Admitted As Inpatient Condition: Fair Instructions: Dehydration (ED) Referrals: NONE,PCP [Non-Partnered Physician] - Time of Disposition: 16:01 ( will admit ) Syncope HPI - General Chief Complaint: ED Syncope Stated Complaint: Near syncopal episode with fall Time Seen by Provider: 09/25/18 14:50 Source: patient, EMS Mode of arrival: EMS Limitations: no limitations, altered mental status, age Nursing Notes Reviewed: Yes Vital Signs Reviewed: Yes - History of Present Illness HPI Narrative: 88-year-old male who presents to the emergency department via EMS after having a syncopal episode while at home. Patient apparently was found by his when he was in the bathroom and he was on the floor but his pants assisted down. According to the EMS crew patient was mildly confused. Here patient is complaining is still of some dizziness and pain around the sideburn areas struck his head. Patient's was outside and she states that she may have been outside for approximately 30 minutes, and then when she came in, she noted that the patient was on the bathroom floor, and there was a small pool of blood from where he had struck his head. 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 Prodromal Symptoms: none Witnessed: no Context: other (while going to bathroom and getting on the commode ) Current Symptoms: headache History: none Treatments prior to arrival: none - Related Data Home Medications Medication Instructions Recorded Confirmed Fluticasone Propionate Nasal 2 spray NS DAILY 01/24/15 09/25/18 [Flonase] GlipiZIDE [Glucotrol] 5 mg PO DAILY 01/24/15 09/25/18 Mesalamine [Pentasa] 1,500 mg PO BID 01/24/15 09/25/18 Brimonidine 0.2% [Alphagan] 1 drop BOTH EYES BID 02/19/16 09/25/18 Cholecalciferol (Vitamin D3) 2,000 unit PO DAILY 02/19/16 09/25/18 [Vitamin D3] Clobetasol Propionate 0.05% 1 appl TP DAILY 02/19/16 09/25/18 [Temovate] Cyanocobalamin (B-12) [Vitamin B12] 1,000 mcg SQ QMONTH 02/19/16 09/25/18 Famotidine [Pepcid] 40 mg PO DAILY 02/19/16 09/25/18 Gabapentin [Neurontin] 600 mg PO BID 02/19/16 09/25/18 Insulin DETEMIR [Levemir] 20 unit SQ BID 02/19/16 09/25/18 Latanoprost [Xalatan] 1 drop OP DAILY 02/19/16 09/25/18 Vit A/Vit C/Vit E/Zinc/Copper 1 each PO BID 02/19/16 09/25/18 [Icaps Areds Formula Dr Tablet] Lactobac #2-S. Therm-Bifido #1 1 each PO DAILY 01/26/17 09/25/18 [Vsl#3 Capsule] Levomefolate/B6/B12/Algal Oil 1 each PO BID 04/20/17 09/25/18 [Metanx Capsule] metFORMIN [Glucophage] 1,000 mg PO BIDWM 04/20/17 09/25/18 Thiamine Mononitrate [Vitamin B-1] 100 mg PO DAILY 06/15/17 09/25/18 Pravastatin Sodium [Pravachol] 40 mg PO DAILY 11/03/17 09/25/18 Previous Rx's Medication Instructions Recorded Azithromycin [Zithromax] 250 mg PO DAILY #5 tablet 09/02/18 Bumetanide [Bumex] 1 mg PO DAILY #30 tablet 09/02/18 Cefuroxime PO [Ceftin] 500 mg PO Q12HR #10 tablet 09/02/18 Digoxin [Lanoxin] 0.125 mg PO DAILY #30 tablet 09/02/18 Isosorbide MONOnitrate (24 HR) 60 mg PO DAILY #30 tab.er.24h 09/02/18 [Imdur] Lactobacillus [Culturelle] 1 each PO BID #10 cap.sprink 09/02/18 Lisinopril [Zestril] 10 mg PO DAILY #30 tablet 09/02/18 Metoprolol XL (24 HR) Succ [Toprol 50 mg PO DAILY #30 tab.er.24h 09/02/18 XL] Potassium Chloride 10 meq PO DAILY #30 tab.er.prt 09/02/18 Rivaroxaban [Xarelto] 15 mg PO 1700 #30 tablet 09/02/18 Allergies Allergy/AdvReac Type Severity Reaction Status Date / Time No Known Allergies Allergy Verified 08/17/18 13:34 All systems ED: reviewed and negative except as stated. Constitutional: Denies: fever, chills, weakness, weight change Eyes: Denies: eye pain, eye discharge, vision change ENT ED: Denies: ear pain, throat pain, dental pain, hearing loss, epistaxis, congestion, dysphagia Cardiovascular: Denies: chest pain, palpitations, dyspnea on exertion, edema, syncope Respiratory: Denies: cough, dyspnea, wheezes, hemoptysis, stridor Gastrointestinal: Denies: abdominal pain, nausea, vomiting, diarrhea, constipation, hematemesis, melena, hematochezia Genitourinary: Denies: urgency, dysuria, frequency, hematuria Musculoskeletal: Denies: back pain, neck pain, arthralgia, myalgia Integumentary: Denies: rash, abrasion, lesions Neurological: Reports: headache, weakness. Denies: numbness, paresthesias, confusion, abnormal gait, vertigo Psychiatric: Denies: anxiety, depression, suicidal thoughts, homicidal thoughts, auditory hallucinations, visual hallucinations Endocrine: Denies: fatigue Hematological/Lymphatic: Denies: easy bleeding, easy bruising Allergic/Immunologic: Denies: facial swelling, urticaria Past Medical History - Past Medical History Medical history: Reports: cancer, diabetes, hypertension, other Surgical history: Reports: appendectomy, cholecystectomy, orthopedic, other Psychiatric history: Reports: no psych history - Social History Smoking Status: Never smoker Smokeless Tobacco Status: No Alcohol use: Reports: none Drug use: Reports: none Physical Exam - General Limitations: altered mental status, age General appearance: alert, in no apparent distress - Expanded Head Exam Head exam physicial: Present: laceration 1 - laceration noted, some skine tear , other is abrasion - Eye Eye exam: Present: normal appearance, PERRL, EOMI - Expanded Eye Exam Pupils: Left: reactive - ENT ENT exam: normal exam, normal oropharynx, mucous membranes moist - Expanded ENT Exam External ear exam: Present: normal external inspection Mouth exam: Present: normal external inspection Teeth exam: Present: normal inspection Throat exam: Present: normal inspection - Neck Neck exam: Present: normal inspection, full ROM, trachea midline - Chest Chest inspection: Present: normal inspection, symmetric chest wall rise - Respiratory Respiratory exam: Present: normal lung sounds bilaterally - Cardiovascular Cardiovascular exam: Present: regular rate, normal rhythm, normal heart sounds - Abdominal Exam Abdominal exam: Present: soft, Non-Tender. Absent: tenderness, distention, guarding, rebound, rigidity - Extremities Exam Extremities exam: Present: normal inspection, full ROM. Absent: tenderness, pedal edema - Expanded Upper Extremity Exam Shoulder exam: Present: normal inspection, full ROM Arm exam: Present: normal inspection, full ROM Elbow exam: Present: normal inspection, full ROM Forearm/Wrist exam: Present: normal inspection, full ROM Hand exam: Present: normal inspection, full ROM Vascular exam: Normal: capillary refill, radial pulse - Expanded Lower Extremity Exam Hip/Pelvis exam: Present: normal inspection, full ROM Upper leg exam: Present: normal inspection, full ROM Knee exam: Present: normal inspection, full ROM Lower leg exam: Present: normal inspection, full ROM Ankle exam: Present: normal inspection, full ROM Foot/toe exam: Present: normal inspection, full ROM Neurovascular/Tendon exam: Absent: motor deficit, sensory deficit, tendon deficit - Back Exam Back exam: Present: normal inspection, full ROM. Absent: tenderness - Neurological Exam Neurological exam: Present: alert, other (Patient is oriented to time, to year but does not know what city he is in. He also could answer who the president was) - Expanded Neurological Exam Patient oriented to: Present: person, time Speech: Present: fluid speech Coma Scale Eye Opening: Spontaneous Coma Scale Motor Response: Obeys Commands Coma Scale Verbal Response: Oriented Coma Scale Total: 15 - Psychiatric Psychiatric exam: Present: normal affect, normal mood - Skin Skin exam: Present: warm, dry, intact, normal color Course Vital Signs Temperature 98.4 F 09/25/18 14:39 Pulse Rate 79 09/25/18 14:39 Respiratory Rate 18 09/25/18 14:39 Blood Pressure 123/99 09/25/18 14:39 O2 Sat by Pulse Oximetry 99 09/25/18 14:39 Temperature 98.4 F 09/25/18 14:39 Pulse Rate 91 09/25/18 15:58 Respiratory Rate 18 09/25/18 15:58 Blood Pressure 116/76 09/25/18 15:58 O2 Sat by Pulse Oximetry 98 09/25/18 15:58 Oxygen Delivery Oxygen Delivery Room Air Procedures - Laceration Laceration 1 Site: scalp Side (If applicable): left Size (cm): 2 Description: stellate Depth: simple, single layer Local Anesthetic: lidocaine 1% Skin layer closed with: jaquelin Number of sutures/jaquelin: 5 Syncope - MDM Narrative Medical decision making narrative: Patient was given a 1 L bolus of normal saline after his repeat blood pressure in the room was 96/50. Area to the scalp was cleaned with saline, and using 1% lidocaine area was anesthesias and 5 jaquelin were applied to the area. - Differential Diagnosis Likely: syncope due to orthostatic hypotension, vasovagal syncope, intracerebral hemorrhage, dehydration/metabolic disorder - Lab Data Result diagrams: 09/25/18 15:06 09/25/18 15:06 Lab Results 09/25/18 09/25/18 09/25/18 Range/Units 15:06 15:06 15:06 WBC 7.3 (4.3-11.1) K/mcL RBC 4.47 (4.19-5.50) M/mcL Hgb 13.4 (12.9-16.9) g/dL Hct 38.5 (37.5-50.1) % MCV 86.1 (83.0-100.0) fL MCH 30.0 (28.0-33.3) pg MCHC 34.8 (31.6-35.5) g/dL RDW 14.0 (11.5-14.5) % Plt Count 219 (140-400) K/mcL MPV 10.2 (9.4-12.4) fL Immature Gran % 0.4 (0-4) % Seg Neutrophils % 81.3 % Lymphocytes % 4.4 % Monocytes % 9.9 % Eosinophils % 3.7 % Basophils % 0.3 % Neutrophils # 5.9 (1.6-8.9) K/mcL Lymphocytes # 0.3 L (0.6-4.6) K/mcL Monocytes # 0.7 (0.0-1.3) K/mcL Eosinophils # 0.3 (0.0-0.6) K/mcL Basophils # 0.0 (0.0-0.2) K/mcL PT (9.4-12.1) Seconds INR APTT (26.0-36.0) Seconds Sodium 137 (136-145) mEq/L Potassium 4.4 (3.5-5.1) mEq/L Chloride 102 (98-107) mEq/L Carbon Dioxide 24 (23-29) mEq/L BUN 31 H (8-23) mg/dL Creatinine 1.30 (0.70-1.30) mg/dL Est GFR ( Amer) > 60 (> 60) Est GFR (Non-Af Amer) 52 L (> 60) BUN/Creatinine Ratio 24 (6-26) Glucose 270 H (70-105) mg/dL POC Glucose (70-99) mg/dL Calculated Osmolality 300 (280-300) Lactic Acid 2.5 H (0.5-2.2) mmol/L Calcium 9.0 (8.6-10.3) mg/dL Total Bilirubin 0.9 (0.3-1.0) mg/dL AST 21 (13-39) Units/L ALT 20 (7-52) Units/L Alkaline Phosphatase 89 (34-104) Units/L Troponin I (< 0.04) ng/mL Serum Total Protein 6.5 (6.4-8.9) g/dL Albumin 4.0 (3.5-5.7) g/dL Globulin 2.5 (2.4-3.5) g/dL Albumin/Globulin Ratio 1.6 (1.1-2.2) 09/25/18 09/25/18 09/25/18 Range/Units 15:06 15:06 15:14 WBC (4.3-11.1) K/mcL RBC (4.19-5.50) M/mcL Hgb (12.9-16.9) g/dL Hct (37.5-50.1) % MCV (83.0-100.0) fL MCH (28.0-33.3) pg MCHC (31.6-35.5) g/dL RDW (11.5-14.5) % Plt Count (140-400) K/mcL MPV (9.4-12.4) fL Immature Gran % (0-4) % Seg Neutrophils % % Lymphocytes % % Monocytes % % Eosinophils % % Basophils % % Neutrophils # (1.6-8.9) K/mcL Lymphocytes # (0.6-4.6) K/mcL Monocytes # (0.0-1.3) K/mcL Eosinophils # (0.0-0.6) K/mcL Basophils # (0.0-0.2) K/mcL PT 13.2 H (9.4-12.1) Seconds INR 1.2 APTT 38.1 H (26.0-36.0) Seconds Sodium (136-145) mEq/L Potassium (3.5-5.1) mEq/L Chloride (98-107) mEq/L Carbon Dioxide (23-29) mEq/L BUN (8-23) mg/dL Creatinine (0.70-1.30) mg/dL Est GFR ( Amer) (> 60) Est GFR (Non-Af Amer) (> 60) BUN/Creatinine Ratio (6-26) Glucose (70-105) mg/dL POC Glucose 254 H (70-99) mg/dL Calculated Osmolality (280-300) Lactic Acid (0.5-2.2) mmol/L Calcium (8.6-10.3) mg/dL Total Bilirubin (0.3-1.0) mg/dL AST (13-39) Units/L ALT (7-52) Units/L Alkaline Phosphatase (34-104) Units/L Troponin I < 0.03 (< 0.04) ng/mL Serum Total Protein (6.4-8.9) g/dL Albumin (3.5-5.7) g/dL Globulin (2.4-3.5) g/dL Albumin/Globulin Ratio (1.1-2.2) 09/25/18 Range/Units 15:15 WBC (4.3-11.1) K/mcL RBC (4.19-5.50) M/mcL Hgb (12.9-16.9) g/dL Hct (37.5-50.1) % MCV (83.0-100.0) fL MCH (28.0-33.3) pg MCHC (31.6-35.5) g/dL RDW (11.5-14.5) % Plt Count (140-400) K/mcL MPV (9.4-12.4) fL Immature Gran % (0-4) % Seg Neutrophils % % Lymphocytes % % Monocytes % % Eosinophils % % Basophils % % Neutrophils # (1.6-8.9) K/mcL Lymphocytes # (0.6-4.6) K/mcL Monocytes # (0.0-1.3) K/mcL Eosinophils # (0.0-0.6) K/mcL Basophils # (0.0-0.2) K/mcL PT (9.4-12.1) Seconds INR APTT (26.0-36.0) Seconds Sodium (136-145) mEq/L Potassium (3.5-5.1) mEq/L Chloride (98-107) mEq/L Carbon Dioxide (23-29) mEq/L BUN (8-23) mg/dL Creatinine (0.70-1.30) mg/dL Est GFR ( Amer) (> 60) Est GFR (Non-Af Amer) (> 60) BUN/Creatinine Ratio (6-26) Glucose (70-105) mg/dL POC Glucose 264 H (70-99) mg/dL Calculated Osmolality (280-300) Lactic Acid (0.5-2.2) mmol/L Calcium (8.6-10.3) mg/dL Total Bilirubin (0.3-1.0) mg/dL AST (13-39) Units/L ALT (7-52) Units/L Alkaline Phosphatase (34-104) Units/L Troponin I (< 0.04) ng/mL Serum Total Protein (6.4-8.9) g/dL Albumin (3.5-5.7) g/dL Globulin (2.4-3.5) g/dL Albumin/Globulin Ratio (1.1-2.2) - Radiology Data Radiology results reviewed: Yes I reviewed the patient's radiology results. CT of head shows no acute process per radiology reading chest x-ray per radiology reading shows no acute process. - EKG Data EKG attestation: Yes I reviewed and interpreted this EKG. EKG results narrative: EKG is normal sinus rhythm, left axis deviation, minimal ST-T wave changes in leads V4 V5 and V6. EKG shows normal: sinus rhythm Rate: normal Rhythm: NSR [place]/QRS: normal
[2018-09-25 15:14] LABS: Basophils % 0.3 %; Eosinophils # 0.3 K/mcL (0.0-0.6); Eosinophils % 3.7 %; Hematocrit 38.5 % (37.5-50.1); Hemoglobin 13.4 g/dL (12.9-16.9); Immature Granulocytes % 0.4 % (0-4); Lymphocytes # 0.3 K/mcL (0.6-4.6); Lymphocytes % 4.4 %; Mean Corpuscular HGB Conc 34.8 g/dL (31.6-35.5); Mean Corpuscular Volume 86.1 fL (83.0-100.0); Mean Platelet Volume 10.2 fL (9.4-12.4); Monocytes # 0.7 K/mcL (0.0-1.3); Monocytes % 9.9 %; Neutrophils # 5.9 K/mcL (1.6-8.9); Platelet Count 219 K/mcL (140-400); Red Blood Count 4.47 M/mcL (4.19-5.50); Segmented Neutrophils % 81.3 %; White Blood Count 7.3 K/mcL (4.3-11.1)
[2018-09-25] MEDS ORDERED: 0.9 % Sodium Chloride 1,000 ML IV ONE (15:19)
[2018-09-25 15:22] LABS: INR 1.2; Prothrombin Time 13.2 Seconds (9.4-12.1)
[2018-09-25 15:25] LABS: Activated Partial Thrombo Time 38.1 Seconds (26.0-36.0)
[2018-09-25 15:34] LABS: Alanine Aminotransferase 20 Units/L (7-52); Albumin/Globulin Ratio 1.6 (1.1-2.2); Alkaline Phosphatase 89 Units/L (34-104); Aspartate Amino Transferase 21 Units/L (13-39); BUN/Creatinine Ratio 24 (6-26); Bilirubin,Total 0.9 mg/dL (0.3-1.0); Blood Urea Nitrogen 31 mg/dL (8-23); Carbon Dioxide 24 mEq/L (23-29); Chloride 102 mEq/L (98-107); Globulin 2.5 g/dL (2.4-3.5); Glucose 270 mg/dL (70-105); Osmolality,Calculated 300 (280-300); Potassium 4.4 mEq/L (3.5-5.1); Sodium 137 mEq/L (136-145); Total Protein 6.5 g/dL (6.4-8.9); eGFR For African Americans > 60 (> 60); eGFR For Non-African Americans 52 (> 60)
[2018-09-25] MEDS ORDERED: Naloxone 0.4 MG/ML INJ IVP PRN ×2 (16:20→17:33)
[2018-09-25 17:06] LABS: Bilirubin,Urine Negative (Negative); Blood,Urine Negative (Negative); Clarity,Urine Clear (Clear); Color,Urine Yellow (Yellow); Glucose,Urine (UA) Normal (Normal); Ketones,Urine Trace mg/dL (Negative); Leukocyte Esterase,Urine Negative (Negative); Nitrite,Urine Negative (Negative); Protein,Urine Trace mg/dL (Neg-Trace); Urobilinogen,Urine Normal (Normal)
[2018-09-25] MEDS ORDERED: NON-FORMULARY MEDICATION 1 EACH EACH (Cyanocobalamin (B-12) 1,000 MCG) SQ SCH (17:33)
[2018-09-25] MEDS ORDERED: Cefuroxime PO 250 MG TABLET PO SCH (18:00)
[2018-09-25] MEDS: *HR* Rivaroxaban 15 MG TABLET PO SCH (18:14)
[2018-09-25] MEDS: *HR* Metformin 500 MG TABLET PO SCH (18:14)
[2018-09-25] MEDS: METANX PO SCH (20:50)
[2018-09-25] MEDS: MESALAMINE PO SCH (20:50)
[2018-09-25] MEDS: Lactobacillus 1 EACH CAP.SPRINK PO SCH (21:46)
[2018-09-25] MEDS: Multivit/Ca/Min/Fe/FA 1 TAB TABLET PO SCH (21:46)
[2018-09-25] MEDS: Gabapentin 300 MG CAPSULE PO SCH (21:46)
[2018-09-25] MEDS: Insulin DETEMIR 100 UNIT/ML X5UNITS SQ SCH (21:51)
[2018-09-26] MEDS: Famotidine 20 MG TABLET PO SCH (08:07)
[2018-09-26] MEDS: Gabapentin 300 MG CAPSULE PO SCH ×2 (08:07→20:46)
[2018-09-26] MEDS: GlipiZIDE 5 MG TABLET PO SCH (08:07)
[2018-09-26] MEDS: Azithromycin 250 MG TABLET PO SCH (08:07)
[2018-09-26] MEDS: Metoprolol XL (24 HR) Succ 50 MG TAB.ER.24H PO SCH (08:07)
[2018-09-26] MEDS: *HR* Digoxin 0.125 MG TABLET PO SCH (08:07)
[2018-09-26] MEDS: Multivit/Ca/Min/Fe/FA 1 TAB TABLET PO SCH ×2 (08:08→20:46)
[2018-09-26] MEDS: Isosorbide MONOnitrate (24 HR) 60 MG TAB.ER.24H PO SCH (08:08)
[2018-09-26] MEDS: *HR* Metformin 500 MG TABLET PO SCH ×2 (08:08→18:01)
[2018-09-26] MEDS: Lactobacillus 1 EACH CAP.SPRINK PO SCH ×2 (08:08→20:46)
[2018-09-26] MEDS: Cholecalciferol (D-3) 1,000 UNIT (25MCG) TABLET PO SCH (08:08)
[2018-09-26] MEDS: Thiamine (B-1) 100 MG TABLET PO SCH (08:08)
[2018-09-26] MEDS: METANX PO SCH ×2 (08:10→20:47)
[2018-09-26] MEDS: Clobetasol Propionate 0.05% 15 GM Cream Tube TP SCH (08:10)
[2018-09-26] MEDS: Fluticasone Propionate Nasal 50 MCG/SPRAY BOTTLE NS SCH (08:11)
[2018-09-26] MEDS: MESALAMINE PO SCH ×2 (08:11→20:46)
[2018-09-26] MEDS ORDERED: [UNRECOGNIZED DRUG - OTHER] PO SCH (09:00)
[2018-09-26] MEDS ORDERED: Latanoprost 2.5 ML BOTTLE BOTH EYES SCH ×2 (09:00→21:00)
[2018-09-26] MEDS ORDERED: Bumetanide 1 MG TABLET PO SCH (09:00)
[2018-09-26] MEDS: Insulin DETEMIR 100 UNIT/ML X5UNITS SQ SCH ×2 (09:28→20:46)
--- NOTE | 2018-09-26 11:23 | Internal Med History&Physical ---
Date of Encounter: 09/26/18 Time of Encounter: 10:55 Assessment and Plan (1) Syncope Current visit: Yes Status: Acute Etiology not determined. IV fluids will be given and orthostatic vital signs will be checked in a.m. Telemetry monitoring will be ordered. Qualifiers: Syncope type: unspecified Qualified Code(s): R55 - Syncope and collapse (2) Atrial fibrillation Current visit: Yes Status: Chronic Continue Xarelto and Toprol-XL. Lanoxin level will be checked. Qualifiers: Atrial fibrillation type: chronic Qualified Code(s): I48.2 - Chronic atrial fibrillation (3) CHF (congestive heart failure) Current visit: No Status: Acute LVEF was 20-25% on echocardiogram 09/01/2018. Pleural effusion has resolved on chest x-ray with prescribed treatment. Continue Lanoxin, Imdur, lisinopril, and Toprol. Qualifiers: Heart failure type: systolic Heart failure chronicity: acute on chronic Qualified Code(s): I50.23 - Acute on chronic systolic (congestive) heart failure (4) DM type 2 (diabetes mellitus, type 2) Current visit: No Status: Chronic Hemoglobin A1c was 9.9% on 05/06/2018. Continue Levemir, Glucophage, and Accu- Cheks with SSI. 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 Orthostatic vital signs will be checked in a.m. Qualifiers: Hypertension type: essential hypertension Qualified Code(s): I10 - Essential (primary) hypertension (7) Diarrhea Current visit: Yes Status: Acute By history. Stool will be sent for lactoferrin. Qualifiers: Diarrhea type: unspecified type Qualified Code(s): R19.7 - Diarrhea, unspecified Internal Medicine - H&P: HPI Chief complaint: Syncope Admitted From: Emergency Dept Plans for Post Hospital Care: Home History of present illness: Mr. Gómez is a 88 year old male who was brought to emergency room after his found him on the floor at home. He reports he had finished using the bathroom and was going through the doorway into the hallway when he fell. He does not remember the fall process. He reports he was unconscious when his found him several minutes later. EMS was called and he was aroused at home and transported to emergency room. He was found to have elevated BUN, slight left shift on WBC differential and elevated lactic acid level. He was admitted to [facility] for ongoing care needs. He reports he has felt minimally lightheaded upon arising from a seated position the past few days. Most recent syncopal episode was 2-3 years ago. Neurologic history is positive for diabetic peripheral neuropathy. He denies large distillation strokes or seizures. Cardiovascular history is pertinent for hypertension and CHF. Echocardiogram done during his recent [facility] stay showed LVEF of 20-25% with indeterminate diastolic function. There was moderate RV hypokinesis, moderate mitral regurgitation, [id number] tricuspid regurgitation, and mild pulmonic regurgitation. There was a small pericardial effusion without tamponade and a moderate to large pleural effusion. Estimated RVSP was 54 mmHg. The interventricular septum and posterior wall thickness measurements were 1.60 and 1.10 cm respectively. There was LAE at 4.30 cm. He was started on Lanoxin, Imdur, and Bumex. Lisinopril and metoprolol were continued at higher doses. He had good clinical improvement with BN peptide decreasing from 2595 on September 01 to 1258 on September 02. He was started on Xarelto for CVA prophylaxis from atrial fibrillation. He reports EST approximately 1998 showed no evidence of ischemia. He denies UT DVT or pulmonary embolus. Past Med Surg Social Fam HX - Past Medical History Medical history: atrial fibrillation, cancer, diabetes, hypertension, other Additional medical history: colon cancer, colitis Psychiatric history: no psych history - Past Surgical History Surgical History: appendectomy, cholecystectomy, orthopedic, other Additional surgical history: bowel resection. neck sx - Social History Smoking Status: Never smoker Smokeless Tobacco Status: No Alcohol use: none Drug use: none Internal Medicine - H&P: Meds Fluticasone Propionate Nasal [Flonase] 2 spray NS DAILY 01/24/15 [History] GlipiZIDE [Glucotrol] 5 mg PO DAILY 01/24/15 [History] Mesalamine [Pentasa] 1,500 mg PO BID 01/24/15 [History] Brimonidine 0.2% [Alphagan] 1 drop BOTH EYES BID 02/19/16 [History] Cholecalciferol (Vitamin D3) [Vitamin D3] 2,000 unit PO DAILY 02/19/16 [History] Clobetasol Propionate 0.05% [Temovate] 1 appl TP DAILY 02/19/16 [History] Cyanocobalamin (B-12) [Vitamin B12] 1,000 mcg SQ QMONTH 02/19/16 [History] Famotidine [Pepcid] 40 mg PO DAILY 02/19/16 [History] Gabapentin [Neurontin] 600 mg PO BID 02/19/16 [History] Insulin DETEMIR [Levemir] 20 unit SQ BID 02/19/16 [History] Latanoprost [Xalatan] 1 drop OP DAILY 02/19/16 [History] Vit A/Vit C/Vit E/Zinc/Copper [Icaps Areds Formula Dr Tablet] 1 each PO BID 02/19/16 [History] Lactobac #2-S. Therm-Bifido #1 [Vsl#3 Capsule] 1 each PO DAILY 01/26/17 [History] Levomefolate/B6/B12/Algal Oil [Metanx Capsule] 1 each PO BID 04/20/17 [History] metFORMIN [Glucophage] 1,000 mg PO BIDWM 04/20/17 [History] Thiamine Mononitrate [Vitamin B-1] 100 mg PO DAILY 06/15/17 [History] Pravastatin Sodium [Pravachol] 40 mg PO DAILY 11/03/17 [History] Azithromycin [Zithromax] 250 mg PO DAILY #5 tablet 09/02/18 [Rx] Bumetanide [Bumex] 1 mg PO DAILY #30 tablet 09/02/18 [Rx] Cefuroxime PO [Ceftin] 500 mg PO Q12HR #10 tablet 09/02/18 [Rx] Digoxin [Lanoxin] 0.125 mg PO DAILY #30 tablet 09/02/18 [Rx] Isosorbide MONOnitrate (24 HR) [Imdur] 60 mg PO DAILY #30 tab.er.24h 09/02/18 [Rx] Lactobacillus [Culturelle] 1 each PO BID #10 cap.sprink 09/02/18 [Rx] Lisinopril [Zestril] 10 mg PO DAILY #30 tablet 09/02/18 [Rx] Metoprolol XL (24 HR) Succ [Toprol XL] 50 mg PO DAILY #30 tab.er.24h 09/02/18 [Rx] Potassium Chloride 10 meq PO DAILY #30 tab.er.prt 09/02/18 [Rx] Rivaroxaban [Xarelto] 15 mg PO 1700 #30 tablet 09/02/18 [Rx] Allergy/AdvReac Type Severity Reaction Status Date / Time No Known Allergies Allergy Verified 08/17/18 13:34 All Systems PM: A 10-system review of systems was performed and is negative for pertinent f indings except as documented above in the HPI. Review of systems: Review of systems from his August 2018 [facility] history and physical were reviewed and revised as below. Gen.: He states he has lost approximately 7 pounds since his hospitalization 3-4 weeks ago. At his last hospitalization he reported his weight has been stable for several months Cardiovascular: As per history of present illness Respiratory: He is a lifelong nonsmoker. PFTs April 2017 showed normal spirometry. DLCO (corrected) was 73% predicted. GI: He reports a history of long-standing GI blood loss. He states multiple colonoscopies have been done with a diagnosis of colitis. He was started on mesalamine. He follows regularly with a framing inspector at [facility]. He has had cholecystectomy. He denies disorders of his liver or exocrine pancreas. He reports he has had diarrhea almost daily since discharge from [facility] 3-4 weeks ago. He denies melena or hematochezia. He denies vomiting fevers or chills. : Reports history of acute kidney injury that resolved but denies chronic kidney disease or disorders of his bladder or prostate Neurologic: As per history of present illness Endocrine: He was diagnosed with DM 2 approximately 1995. He has hyperlipidemia but denies thyroid disease Hematology/oncology: He reports iron deficiency anemia from slow ongoing GI blood loss. He reports multiple iron infusions have been given. Reports history of colon cancer March 1995 that was treated with segmental resection which was curative. He is presumed cancer free. He denies other blood disor ders or recent anemia. Psychiatric: He denies anxiety depression or other mental health issues [place] skeletal: He reports cervical spine HNP surgery approximately 2014. He has DJD and remote history of gout. - Constitutional Vitals: Temp Pulse Resp BP Pulse Ox 97.4 F L 68 18 132/67 99 09/26/18 10:53 09/26/18 10:53 09/26/18 10:53 09/26/18 10:53 09/26/18 10:53 Exam: Gen.: He is a well-developed well-nourished male resting comfortably in bed who appears in no acute distress HEENT: Head shows Allevyn covering scalp laceration with staple closure in ER in the left posterior parietal area. Eyes: EOMI. There is no scleral icterus. Mouth: Mucosa is moist. Neck: Supple and nontender. There is no thyromegaly or adenopathy noted. Heart: Irregularly irregular without murmurs or gallops. Lungs: No wheezes or crackles are heard. Abdomen: Soft and nontender. No masses or guarding are noted. Extremities: There is no cyanosis edema or clubbing noted. Dorsalis pedis and posterior tibial pulses are trace to 1+ palpable bilaterally. Neurologic: Mental status: He is talkative and a good historian. Cranial nerves: Smile is symmetric. Forehead wrinkles bilaterally. Tongue protrudes midline. EOMI. Motor: There is no pronator drift. Cerebellar: Finger to nose is intact bilaterally. Skin: Warm and dry Internal Med - H&P Results - Labs CBC & Chem 7: 09/25/18 15:06 09/25/18 15:06 Labs: Short CBC 09/25/18 Range/Units 15:06 WBC 7.3 (4.3-11.1) K/mcL Hgb 13.4 (12.9-16.9) g/dL Hct 38.5 (37.5-50.1) % Plt Count 219 (140-400) K/mcL Neutrophils # 5.9 (1.6-8.9) K/mcL BMP 09/25/18 15:06 Sodium 137 Potassium 4.4 Chloride 102 Carbon Dioxide 24 BUN 31 H Creatinine 1.30 Glucose 270 H Calcium 9.0 Cardiac Enzymes 09/25/18 Range/Units 15:06 Troponin I < 0.03 (< 0.04) ng/mL Liver Function 09/25/18 Range/Units 15:06 Total Bilirubin 0.9 (0.3-1.0) mg/dL AST 21 (13-39) Units/L ALT 20 (7-52) Units/L Alkaline Phosphatase 89 (34-104) Units/L Albumin 4.0 (3.5-5.7) g/dL Urine 09/25/18 Range/Units 16:20 Urine Color Yellow (Yellow) Urine Clarity Clear (Clear) Urine pH 5.0 (5.0-8.0) pH Units Ur Specific [place] 1.020 (1.010-1.025) Urine Protein Trace (Neg-Trace) mg/dL Urine Glucose (UA) Normal (Normal) mg/dL - Impressions ITS Impressions Chest X-Ray 09/25/18 14:51 IMPRESSION: No acute process. D/ / Partha Brito MD / Partha Brito MD Interpreting Provider: Partha Brito MD Head CT 09/25/18 14:51 IMPRESSION: No acute intracranial abnormality. D/ / Adam Hurley MD / Adam Hurley MD Interpreting Provider: Adam Hurley MD
[2018-09-26] MEDS: *HR* Rivaroxaban 15 MG TABLET PO SCH (18:01)
[2018-09-27 06:11] LABS: Basophils % 0.4 %; Eosinophils # 0.3 K/mcL (0.0-0.6); Eosinophils % 6.6 %; Hematocrit 36.1 % (37.5-50.1); Hemoglobin 12.7 g/dL (12.9-16.9); Immature Granulocytes % 0.2 % (0-4); Lymphocytes # 0.5 K/mcL (0.6-4.6); Lymphocytes % 11.5 %; Mean Corpuscular HGB Conc 35.2 g/dL (31.6-35.5); Mean Corpuscular Volume 85.3 fL (83.0-100.0); Mean Platelet Volume 10.4 fL (9.4-12.4); Monocytes # 0.7 K/mcL (0.0-1.3); Monocytes % 14.8 %; Platelet Count 198 K/mcL (140-400); Red Blood Count 4.23 M/mcL (4.19-5.50); Segmented Neutrophils % 66.5 %; White Blood Count 4.5 K/mcL (4.3-11.1)
[2018-09-27 06:21] LABS: BUN/Creatinine Ratio 20 (6-26); Blood Urea Nitrogen 18 mg/dL (8-23); Calcium 8.9 mg/dL (8.6-10.3); Carbon Dioxide 27 mEq/L (23-29); Chloride 103 mEq/L (98-107); Glucose 81 mg/dL (70-105); Osmolality,Calculated 285 (280-300); Potassium 3.8 mEq/L (3.5-5.1); Sodium 137 mEq/L (136-145); eGFR For African Americans > 60 (> 60); eGFR For Non-African Americans > 60 (> 60)
[2018-09-27 06:25] VITALS: BP 155/79
[2018-09-27] MEDS: Insulin DETEMIR 100 UNIT/ML X5UNITS SQ SCH (08:23)
[2018-09-27] MEDS: Lactobacillus 1 EACH CAP.SPRINK PO SCH (08:24)
[2018-09-27] MEDS: Famotidine 20 MG TABLET PO SCH (08:24)
[2018-09-27] MEDS: Cholecalciferol (D-3) 1,000 UNIT (25MCG) TABLET PO SCH (08:24)
[2018-09-27] MEDS: GlipiZIDE 5 MG TABLET PO SCH (08:24)
[2018-09-27] MEDS: *HR* Metformin 500 MG TABLET PO SCH (08:24)
[2018-09-27] MEDS: Gabapentin 300 MG CAPSULE PO SCH (08:24)
[2018-09-27] MEDS: Isosorbide MONOnitrate (24 HR) 60 MG TAB.ER.24H PO SCH (08:24)
[2018-09-27] MEDS: Azithromycin 250 MG TABLET PO SCH (08:25)
[2018-09-27] MEDS: *HR* Digoxin 0.125 MG TABLET PO SCH (08:25)
[2018-09-27] MEDS: Thiamine (B-1) 100 MG TABLET PO SCH (08:25)
[2018-09-27] MEDS: Metoprolol XL (24 HR) Succ 50 MG TAB.ER.24H PO SCH (08:25)
[2018-09-27] MEDS: Multivit/Ca/Min/Fe/FA 1 TAB TABLET PO SCH (08:25)
[2018-09-27] MEDS: METANX PO SCH (08:26)
[2018-09-27] MEDS: Clobetasol Propionate 0.05% 15 GM Cream Tube TP SCH (08:26)
[2018-09-27] MEDS: MESALAMINE PO SCH (08:26)
[2018-09-27] MEDS: Fluticasone Propionate Nasal 50 MCG/SPRAY BOTTLE NS SCH (08:26)
[2018-09-27] MEDS ORDERED: Bumetanide 1 MG TABLET PO SCH (09:00)
--- NOTE | 2018-09-27 09:18 | Discharge Summary ---
Orders not resulted at time of discharge: Pending orders 09/26/18 11:22 Fecal Lactoferrin [RM] Routine Date of Encounter: 09/27/18 Time of Encounter: 09:08 - Discharge Diagnosis (1) Syncope Priority: Primary Status: Acute Qualifiers: Syncope type: unspecified Qualified Code(s): R55 - Syncope and collapse (2) Atrial fibrillation Priority: Secondary Status: Chronic Qualifiers: Atrial fibrillation type: chronic Qualified Code(s): I48.2 - Chronic atrial fibrillation (3) CHF (congestive heart failure) Priority: Secondary Status: Acute Qualifiers: Heart failure type: systolic Heart failure chronicity: acute on chronic Qualified Code(s): I50.23 - Acute on chronic systolic (congestive) heart failure (4) DM type 2 (diabetes mellitus, type 2) Priority: Secondary Status: Chronic Qualifiers: Diabetes mellitus long-term 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 Gómez is a 88 year old male who was brought to emergency room after his found him on the floor at home. He reports he had finished using the bathroom and was going through the doorway into the hallway when he fell. He does not remember the fall process. He reports he was unconscious when his found him several minutes later. EMS was called and he was aroused at home and transported to emergency room. He was found to have elevated BUN, slight left shift on WBC differential and elevated lactic acid level. He was admitted to [facility] floor for ongoing care needs. Initial orders were written by the emergency room physician. I saw him on September 26 and performed a history and physical. He had no further syncopal or near syncopal episodes. Orthostatic vital signs showed no significant change lying to standing. Bumex dose was decreased to 0.5 mg daily and IV fluids were given. BUN and creatinine normalized to 18 and 0.92 respectively with estimated GFR > 60 on day of discharge. He will continue lower dose Bumex 0.5 mg daily. Left shift on the WBC differential resolved. Elevated lactic acid level resolved. Additional labs showed BN peptide decreased to 805 and digoxin level therapeutic at 1.2. There were no new problems and when I saw him on September 27 he felt stable for discharge home. He will follow with his PCP Dr. García within 1 week. Staple removal from scalp laceration closure can be done at the follow-up visit with his PCP. - Time Spent with Patient Total time spent providing and/or coordinating discharge services: - Discharge Medications Prescriptions: New Bumetanide [Bumex] 0.5 mg PO DAILY tablet Continued Fluticasone Propionate Nasal [Flonase] 2 spray NS DAILY Mesalamine [Pentasa] 1,500 mg PO BID GlipiZIDE [Glucotrol] 5 mg PO DAILY Insulin DETEMIR [Levemir] 20 unit SQ BID Gabapentin [Neurontin] 600 mg PO BID Brimonidine 0.2% [Alphagan] 1 drop BOTH EYES BID Vit A/Vit C/Vit E/Zinc/Copper [Icaps Areds Formula Dr Tablet] 1 each PO BID Latanoprost [Xalatan] 1 drop OP DAILY Famotidine [Pepcid] 40 mg PO DAILY Cyanocobalamin (B-12) [Vitamin B12] 1,000 mcg SQ QMONTH Clobetasol Propionate 0.05% [Temovate] 1 appl TP DAILY Cholecalciferol (Vitamin D3) [Vitamin D3] 2,000 unit PO DAILY Lactobac #2-S. Therm-Bifido #1 [Vsl#3 Capsule] 1 each PO DAILY metFORMIN [Glucophage] 1,000 mg PO BIDWM Levomefolate/B6/B12/Algal Oil [Metanx Capsule] 1 each PO BID Pravastatin Sodium [Pravachol] 40 mg PO DAILY Lactobacillus [Culturelle] 1 each PO BID #10 cap.sprink Isosorbide MONOnitrate (24 HR) [Imdur] 60 mg PO DAILY #30 tab.er.24h Digoxin [Lanoxin] 0.125 mg PO DAILY #30 tablet Potassium Chloride 10 meq PO DAILY #30 tab.er.prt Metoprolol XL (24 HR) Succ [Toprol Xl] 50 mg PO DAILY #30 tab.er.24h Rivaroxaban [Xarelto] 15 mg PO 1700 #30 tablet Lisinopril [Zestril] 10 mg PO DAILY #30 tablet Discontinued Thiamine Mononitrate [Vitamin B-1] 100 mg PO DAILY Bumetanide [Bumex] 1 mg PO DAILY #30 tablet Cefuroxime PO [Ceftin] 500 mg PO Q12HR #10 tablet Azithromycin [Zithromax] 250 mg PO DAILY #5 tablet Home Medications: Fluticasone Propionate Nasal [Flonase] 2 spray NS DAILY 01/24/15 [History] GlipiZIDE [Glucotrol] 5 mg PO DAILY 01/24/15 [History] Mesalamine [Pentasa] 1,500 mg PO BID 01/24/15 [History] Brimonidine 0.2% [Alphagan] 1 drop BOTH EYES BID 02/19/16 [History] Cholecalciferol (Vitamin D3) [Vitamin D3] 2,000 unit PO DAILY 02/19/16 [History] Clobetasol Propionate 0.05% [Temovate] 1 appl TP DAILY 02/19/16 [History] Cyanocobalamin (B-12) [Vitamin B12] 1,000 mcg SQ QMONTH 02/19/16 [History] Famotidine [Pepcid] 40 mg PO DAILY 02/19/16 [History] Gabapentin [Neurontin] 600 mg PO BID 02/19/16 [History] Insulin DETEMIR [Levemir] 20 unit SQ BID 02/19/16 [History] Latanoprost [Xalatan] 1 drop OP DAILY 02/19/16 [History] Vit A/Vit C/Vit E/Zinc/Copper [Icaps Areds Formula Dr Tablet] 1 each PO BID 02/19/16 [History] Lactobac #2-S. Therm-Bifido #1 [Vsl#3 Capsule] 1 each PO DAILY 01/26/17 [History] Levomefolate/B6/B12/Algal Oil [Metanx Capsule] 1 each PO BID 04/20/17 [History] metFORMIN [Glucophage] 1,000 mg PO BIDWM 04/20/17 [History] Pravastatin Sodium [Pravachol] 40 mg PO DAILY 11/03/17 [History] Digoxin [Lanoxin] 0.125 mg PO DAILY #30 tablet 09/02/18 [Rx] Isosorbide MONOnitrate (24 HR) [Imdur] 60 mg PO DAILY #30 tab.er.24h 09/02/18 [Rx] Lactobacillus [Culturelle] 1 each PO BID #10 cap.sprink 09/02/18 [Rx] Lisinopril [Zestril] 10 mg PO DAILY #30 tablet 09/02/18 [Rx] Metoprolol XL (24 HR) Succ [Toprol Xl] 50 mg PO DAILY #30 tab.er.24h 09/02/18 [Rx] Potassium Chloride 10 meq PO DAILY #30 tab.er.prt 09/02/18 [Rx] Rivaroxaban [Xarelto] 15 mg PO 1700 #30 tablet 09/02/18 [Rx] Bumetanide [Bumex] 0.5 mg PO DAILY tablet 09/27/18 [Rx] Allergies/Adverse Reactions: Allergy/AdvReac Type Severity Reaction Status Date / Time No Known Allergies Allergy Verified 08/17/18 13:34 Date of admission: 09/25/18 16:39 Primary care physician: Tom García DO Consults: 09/25/18 17:21 Consult to Pastoral Services [CONS] Routine Comment: - Constitutional Vitals: Temp Pulse Resp BP Pulse Ox 97.6 F 79 16 155/79 98 09/27/18 06:21 09/27/18 06:26 09/27/18 06:21 09/27/18 06:26 09/27/18 06:21 - Patient Status Disposition: Home, Self-Care Condition: Fair - Discharge Instructions Follow Up With: Tom García DO [Primary Care Provider] - 1 week - Diet and Activity Activity: resume usual activities as tolerated Diet: advance to your usual diet
--- NOTE | 2018-09-27 12:51 | Electrocardiograph Report ---
[place] [id number] Test Date: 2018-09-25 Pat Name: Neptali Gómez Department: EDP-11 Room: [facility] Gender: M File Clerk: : 1930 Requested By: Cher Jerry Order Number: [id number] Reading MD: Petrona Sepulveda Measurements Intervals [place] Rate: 81 P: 0 AL: 146 QRS: -45 QRSD: 91 T: 143 QT: 331 QTc: 385 Interpretive Statements Atrial fibrillation Left anterior fascicular block Nonspecific repol abnormality Electronically Signed On 09-27-2018 12:49:50 EDT by Petrona Sepulveda
== END 2018-09-27 10:40 | disposition home or self-care (01) ==
LOC: EMEROOPIK 14:37 → INPPIK 14:37
PROVIDERS: ADMIT Internal Medicine; ATTEND Internal Medicine